=== PATIENT | male | born 1980 | race Caucasian/White ===

== ENCOUNTER → 2016-04-14 | Outpatient (CLI) | payer OTHER ==
[~2016-04-14] MED LIST: BACTRIM DS TABL1 TAB PO; LORTAB 5/500 TA1 TA1 PO; NO MEDICATIONS; VICODIN 5/500 T1 TAB PO; VOLTAREN50 MG PO
== END | disposition home or self-care (01) ==
LOC: SEKG 12:24
DX: R53.83 Other fatigue (principal); R00.1 Bradycardia, unspecified
CPT/HCPCS: 93225; 93226